=== PATIENT | female | born 1940 | race Caucasian/White ===

== ENCOUNTER → 2018-08-15 09:50 | Outpatient (CLI) | payer MEDICARE, SELFPAY ==
[2018-08-15 12:15] LABS: Rheumatoid Factor < 10.0 IU/mL (<15); Thyroid Stim Hormone (TSH) 7.91 uIU/mL (0.358-3.74)
[2018-08-16 15:20] LABS: ANTINUCLEAR ANTIBODIES DIRECT Negative (Negative)
[2018-08-17 08:09] LABS: Ceruloplasmin 25.7 mg/dL (19.0-39.0)
[2018-08-17 11:56] LABS: Copper, Serum or Plasma 102 ug/dL (72-166)
== END ==
PROVIDERS: Family Provider Nurse Practitioner; PCP Nurse Practitioner; Referring Provider Psychiatry & Neurology Neurology; Visit Provider Psychiatry & Neurology Neurology
DX: R25.1 Tremor, unspecified (principal)
CPT/HCPCS: 36415; 82390; 82525; 84443; 86038; 86431

== ENCOUNTER → 2018-08-30 20:21 | Outpatient (CLI) | payer MEDICARE, SELFPAY ==
[2018-08-30 16:05] VITALS: BMI 25.2
[2018-08-30 21:08] LABS: T3 Total - Triiodothyronine 0.89 ng/mL (0.6-1.81)
[2018-08-30 21:10] LABS: T4 Free Direct 0.25 ng/dL (0.76-1.46); Thyroid Stim Hormone (TSH) 2.92 uIU/mL (0.358-3.74)
[2018-09-04 08:41] LABS: T3 Reverse < 5.0 ng/dL (9.2-24.1); Thyroid Peroxidase AB 81 IU/mL (0-34)
== END ==
PROVIDERS: Family Provider Nurse Practitioner; PCP Nurse Practitioner; Referring Provider Nurse Practitioner; Visit Provider Nurse Practitioner
DX: E03.9 Hypothyroidism, unspecified (principal); R25.1 Tremor, unspecified; I20.8 Other forms of angina pectoris
CPT/HCPCS: 84439; 84443; 84480; 84482; 86376

== ENCOUNTER → 2019-07-01 23:35 | Outpatient (CLI) | payer MEDICARE, SELFPAY ==
[2019-07-01 15:07] VITALS: BMI 24.7
[2019-07-02 00:02] LABS: Absolute Lymphocyte Count 1.59 X10^3/uL (0.83-4.51); Basophil# 0.02 X10^3/uL; Basophil% 0.3 % (0-1); Eosinophil# 0.05 X10^3/uL; Eosinophils% 0.8 % (0-5); Hematocrit 41.9 % (37-47); Hemoglobin 13.6 g/dL (12.0-15.0); Lymphocyte # 1.59 X10^3/ul (4.0); Lymphocyte % 26.1 % (19-41); Mean Corp Hgb Conc 32.5 g/dL (32-36); Mean Corpuscular Hgb 30.4 pg (27.0-32.0); Mean Corpuscular Volume 93.5 fL (81-99); Mean Platelet Vol. 10.9 fl (6.2-12.0); Monocyte# 0.47 X10^3/uL; Monocyte% 7.7 % (0-10); NRBC Flagged by Analyzer 0 % (0-5); Neutrophil # 3.95 X10^3/uL (2.7-7.7); Neutrophil % 64.8 % (47-70); Platelet Count 233 K/mm3 (150-450); RBC Distribution Width CV 12.5 % (11.6-14.6); RBC Distribution Width SD 43.4 fl (35.1-43.9); Red Blood Count 4.48 M/mm3 (4.2-5.4); White Blood Count 6.1 K/mm3 (4.4-11.0)
[2019-07-02 00:47] LABS: AST(SGOT) 25 U/L (15-37); Alanine Aminotransfer ALT/SGPT 29 U/L (13-56); Albumin, Serum 3.9 g/dL (3.2-5.0); Alkaline Phosphatase 116 U/L (45-117); Anion Gap 8 (5-15); BUN 23 mg/dL (7-18); BUN/Creat Ratio 33.1 RATIO (10-20); Calcium,Total 9.1 mg/dL (8.5-10.1); Chloride 111 mmol/L (98-107); Cholesterol 223 mg/dL (200); EST Glomerular Filtration Rate 86 mL/min (>60); Est Glom Filt Rate - Afr Amer 105 mL/min (>60); Globulin 3.8 g/dL (2.2-4.2); Glucose 95 mg/dL (74-106); High Density Lipoprotein 121 mg/dL; Potassium 4.3 mmol/L (3.5-5.1); Protein, Total 7.7 g/dL (6.4-8.2); Sodium Level 140 mmol/L (136-145); T4 Free Direct 0.13 ng/dL (0.76-1.46); Thyroid Stim Hormone (TSH) 0.28 uIU/mL (0.358-3.74); Triglycerides 118 mg/dL; Very Low Density Lipoprotein 24 mg/dL (5-40)
[2019-07-02 02:21] LABS: T3 Total - Triiodothyronine 1.01 ng/mL (0.6-1.81)
[2019-07-08 12:45] LABS: T3 Reverse < 5.0 ng/dL (9.2-24.1)
== END ==
PROVIDERS: Family Provider Nurse Practitioner; PCP Nurse Practitioner; Referring Provider Nurse Practitioner; Visit Provider Nurse Practitioner
DX: E03.9 Hypothyroidism, unspecified (principal); G20 Parkinson's disease; D64.9 Anemia, unspecified
CPT/HCPCS: 80053; 80061; 84439; 84443; 84480; 84482; 85025

== ENCOUNTER → 2021-08-16 22:07 | Outpatient (CLI) | payer MEDICARE, SELFPAY ==
[2021-08-16 22:23] LABS: Absolute Lymphocyte Count 2.36 X10^3/uL (0.83-4.51); Absolute Neutrophil Count 4.9 X10^3/uL (2.0-7.7); Basophil# 0.02 X10^3/uL; Basophil% 0.3 % (0-1); Eosinophil# 0.07 X10^3/uL; Eosinophils% 0.9 % (0-5); Hematocrit 39.2 % (37-47); Hemoglobin 12.5 g/dL (12.0-15.0); Lymphocyte # 2.36 X10^3/ul (0.83-4.51); Lymphocyte % 29.8 % (19-41); Mean Corp Hgb Conc 31.9 g/dL (32-36); Mean Corpuscular Hgb 30.9 pg (27.0-32.0); Mean Platelet Vol. 10.4 fl (6.2-12.0); Monocyte# 0.58 X10^3/uL; Monocyte% 7.3 % (0-10); NRBC Flagged by Analyzer 0 % (0-5); Neutrophil # 4.85 X10^3/uL (2.7-7.7); Neutrophil % 61.3 % (47-70); Platelet Count 338 K/mm3 (150-450); RBC Distribution Width CV 13.1 % (11.6-14.6); RBC Distribution Width SD 46.6 fl (35.1-43.9); Red Blood Count 4.04 M/mm3 (4.2-5.4); White Blood Count 7.9 K/mm3 (4.4-11.0)
[2021-08-16 22:43] LABS: ALB/GLOB Ratio 0.7 RATIO (0.9-2.4); AST(SGOT) 32 U/L (15-37); Alanine Aminotransfer ALT/SGPT 30 U/L (13-56); Albumin, Serum 2.3 g/dL (3.2-5.0); Alkaline Phosphatase 104 U/L (45-117); Anion Gap 7 (5-15); BUN 27 mg/dL (7-18); BUN/Creat Ratio 41.5 RATIO (10-20); Calcium,Total 8.8 mg/dL (8.5-10.1); Chloride 109 mmol/L (98-107); Creatinine, Serum 0.65 mg/dL (0.55-1.02); EST Glomerular Filtration Rate 93 mL/min (>60); Est Glom Filt Rate - Afr Amer 112 mL/min (>60); Globulin 3.4 g/dL (2.2-4.2); Glucose 98 mg/dL (74-106); Potassium 4.4 mmol/L (3.5-5.1); Protein, Total 5.7 g/dL (6.4-8.2); Sodium Level 144 mmol/L (136-145); Thyroid Stim Hormone (TSH) 7.93 uIU/mL (0.358-3.74)
[2021-08-17 12:34] LABS: T3 Total - Triiodothyronine 1.48 ng/mL (0.6-1.81)
== END ==
PROVIDERS: PCP Nurse Practitioner; Referring Provider Nurse Practitioner; Visit Provider Nurse Practitioner
DX: E03.9 Hypothyroidism, unspecified (principal); G25.81 Restless legs syndrome; G47.00 Insomnia, unspecified; G25.2 Other specified forms of tremor
CPT/HCPCS: 80053; 84443; 84480; 85025

== ENCOUNTER 2021-08-26 14:05 | Emergency (ER) | payer MEDICARE, SELFPAY ==
[2021-08-26 14:06] VITALS: BP 123/95; PULSE 72; RESP 16; TEMP 36.7; O2SAT 98; BMI 21.6
--- NOTE | 2021-08-26 14:48 | EKG12_ITS ---
Test Reason : INSOMNIA Blood Pressure : / mmHG Vent. Rate : 065 BPM Atrial Rate : 260 BPM P-R Int : 000 ms QRS Dur : 086 ms QT Int : 402 ms P-R-T Axes : -27 000 026 degrees QTc Int : 418 ms Atrial flutter Abnormal ECG Confirmed by MAKI BAILEY MD ([id number]), assignment desk editor SAURABH PERALTA ([id number]) on 09/01/2021 10:57:29 AM Referred By: MR Confirmed By:MAKI BAILEY MD
--- NOTE | 2021-08-26 15:17 | RAD_ITS ---
STUDY: X-RAY CHEST REASON FOR EXAM: Female, 80 years old. chest pain TECHNIQUE: Single AP portable view of the chest. COMPARISON: None. FINDINGS: The lungs are clear and expanded. There is no demonstrated pleural abnormality. Normal size heart. Normal mediastinum and maycol. Normal visualized pulmonary arteries. There is atherosclerotic calcification of the aortic arch with tortuosity. Normal visualized thoracic spine. Normal visualized ribs, clavicles, and shoulders. There is no demonstrated abnormality of the visualized soft tissue structures of the upper abdomen. RAD/Chest 1 View (Portable) IMPRESSION: Nonacute portable x-ray examination of the chest. Electronically Signed: Byron Lawrence MD (Brooks) at 15:41 EST , Service support ,
[2021-08-26 15:27] LABS: Absolute Neutrophil Count 1.1 X10^3/uL (2.0-7.7); Basophil# 0.01 X10^3/uL; Basophil% 0.4 % (0-1); Eosinophil# 0.01 X10^3/uL; Eosinophils% 0.4 % (0-5); Hematocrit 37.3 % (37-47); Hemoglobin 12.2 g/dL (12.0-15.0); Lymphocyte % 44.1 % (19-41); Mean Corp Hgb Conc 32.7 g/dL (32-36); Mean Corpuscular Volume 94.7 fL (81-99); Mean Platelet Vol. 10.3 fl (6.2-12.0); Monocyte# 0.36 X10^3/uL; Monocyte% 13.2 % (0-10); NRBC Flagged by Analyzer 0 % (0-5); Neutrophil # 1.13 X10^3/uL (2.7-7.7); Neutrophil % 41.5 % (47-70); Platelet Count 207 K/mm3 (150-450); RBC Distribution Width CV 13.2 % (11.6-14.6); Red Blood Count 3.94 M/mm3 (4.2-5.4); White Blood Count 2.7 K/mm3 (4.4-11.0)
[2021-08-26 15:32] LABS: Mucous, Urine 0 SEEN /hpf (<or=2+); Red Blood Cells-Urine 0 SEEN /hpf (0-5); Squamous Epithelial Cells - UA 0 SEEN /hpf (5-10)
[2021-08-26 15:36] LABS: Color, Urine Yellow (Yellow); Glucose, Dipstick Normal (Normal); Ketone-Dipstick Negative (Negative); Leukocyte Esterase-Dipstick Negative /ul (Negative); Nitrite-Dipstick Negative (Negative); Occult Blood-Urine 25 /ul (Negative); Protein-Dipstick 500 mg/dl (Negative); Specific Gravity, Urine 1.015 (1.002-1.030); Urine Bilirubin Dipstick Negative (Negative); Urine Clarity Clear (Clear); Urine Urobilinogen Normal (Normal)
[2021-08-26 15:50] LABS: Bacteria RARE /hpf (None Seen); White Blood Cells 0-5 SEEN /hpf (0-5)
[2021-08-26 15:50] LABS: BNP,B-Type NATRIURETIC PEPTIDE 293.2 pg/mL (0-100)
[2021-08-26 15:51] LABS: ALB/GLOB Ratio 0.4 RATIO (0.9-2.4); AST(SGOT) 45 U/L (15-37); Alanine Aminotransfer ALT/SGPT 38 U/L (13-56); Albumin, Serum 1.7 g/dL (3.2-5.0); Alkaline Phosphatase 75 U/L (45-117); Anion Gap 3 (5-15); BUN 25 mg/dL (7-18); Calcium,Total 8.4 mg/dL (8.5-10.1); Chloride 108 mmol/L (98-107); Creatinine, Serum 0.58 mg/dL (0.55-1.02); EST Glomerular Filtration Rate 105 mL/min (>60); Est Glom Filt Rate - Afr Amer 128 mL/min (>60); Globulin 3.9 g/dL (2.2-4.2); Glucose 86 mg/dL (74-106); Potassium 4.2 mmol/L (3.5-5.1); Protein, Total 5.6 g/dL (6.4-8.2); Sodium Level 142 mmol/L (136-145); Thyroid Stim Hormone (TSH) 0.84 uIU/mL (0.358-3.74); Troponin-I HS 8 pg/mL (3.0-54.0)
[2021-08-26 15:55] LABS: Partial Thromboplast Time 30.6 Seconds (24.1-36.2)
[2021-08-26 16:00] LABS: Prothrombin Time (Protime)PT. 12.9 SECONDS (11.7-14.9)
--- NOTE | 2021-08-26 16:51 | EDS_ITS ---
HPI History of Present Illness Chief Complaint: General Illness Narrative Narrative: Patient presenting for evaluation secondary to lower extremity edema. Patient has a underlying history of atrial fibrillation as well as Parkinson's disease. Patient apparently over the course of the last 2 weeks has been dealing with lower extremity edema which is not typical for her. She was placed on diuretics, which did not seem to alleviate this. Her primary care recommended that she needed to come to the emergency department because something else might be going on. Additionally the patient's daughter states that the patient has been dealing with increased anxiety recently. She has been on Lexapro for around 2 weeks for this. Additionally patient has severe tremors from Parkinson's, and was placed on baclofen which did not seem to be alleviating this. Her tremors are becoming severe enough to the point where the patient is having difficulty sleeping. Patient states that she is also been getting intermittent headaches. She denies any recent fever cough nausea vomiting or diarrhea. Review of systems otherwise negative. [facility] Medical History Age-related nuclear cataract, unspecified eye Anemia Angina pectoris Atrial fibrillation with rapid ventricular response (06/11/20) Barretts esophagus Benign essential tremor syndrome Colorectal polyps Hormone deficiency Hypothyroid Low back strain Nonobstructive atherosclerosis of coronary artery Osteopenia Pain of right hip joint Parkinsons disease Paroxysmal atrial fibrillation Restless legs Home Medications ASbayanthin NOT APPLICABLE 03/29/18 [History Last Taken Unknown] Bifidobacterium infantis 1.5 billion cell capsule 4 mg PO QDAY 03/29/18 [History Last Taken Unknown] MSM NOT APPLICABLE 03/29/18 [History Last Taken Unknown] astragalus root NOT APPLICABLE 03/29/18 [History Last Taken Unknown] cholecalciferol (vitamin D3) 50 mcg (2,000 unit) capsule 2,000 unit PO QDAY 03/29/18 [History Last Taken Unknown] high gaumma NOT APPLICABLE 03/29/18 [History Last Taken Unknown] sea kelp NOT APPLICABLE 03/29/18 [History Last Taken Unknown] vitamin B complex 1 tab PO QDAY 03/29/18 [History Last Taken Unknown] nitro plus PO QHS 06/18/18 [History Last Taken Unknown] famotidine 20 mg tablet 20 mg PO TID tab 04/27/21 [History Last Taken Unknown] liothyronine 25 mcg tablet 37.5 mcg PO BID tab 04/27/21 [History Last Taken Unknown] magnesium oxide 400 mg PO BID 04/27/21 [History Last Taken Unknown] metoprolol succinate 25 mg tablet,extended release 24 hr 25 mg PO DAILY #90 tab 04/27/21 [Rx Last Taken Unknown] apixaban 2.5 mg tablet 2.5 mg PO BID #180 tab 06/28/21 [Rx Last Taken Unknown] metoprolol tartrate 25 mg tablet 25 mg PO BID #180 tab 06/28/21 [Rx Last Taken Unknown] compounded T3 37.5 mg PO QDAY #180 cap 08/09/21 [Rx Last Taken Unknown] baclofen 5 mg tablet 5 mg PO TID PRN #90 tab 08/16/21 [Rx Last Taken Unknown] escitalopram oxalate 5 mg tablet 5 mg PO DAILY #30 tab 08/16/21 [Rx Last Taken Unknown] furosemide 20 mg tablet 20 mg PO DAILY #10 tab 08/17/21 [Rx Last Taken Unknown] levothyroxine 25 mcg tablet 25 mcg PO DAILY #30 tab 08/17/21 [Rx Last Taken Unknown] furosemide [Lasix] 20 mg PO DAILY #10 tab 08/26/21 [Rx Last Taken Unknown] ropinirole 0.25 mg PO TID #21 tab 08/26/21 [Rx Last Taken Unknown] Allergy/AdvReac Type Severity Reaction Status Date / Time No Known Allergies Allergy Verified 06/28/21 15:46 corn and glutens AdvReac Severe Diarrhea Uncoded 04/27/21 08:24 Family History Father Heart disease Grandmother Heart disease paternal Mother Cancer lung Brother Cancer throat cancer Surgical History History of bladder suspension procedure History of right and left heart catheterization (01/12/15) History of total abdominal hysterectomy Social History Smoking Status: Unknown if ever smoked ROS ROS ED Constitutional Constitutional ED: Denies chills or fever(s) ENT ENT ED: Denies rhinorrhea Cardiovascular Cardiovascular: Denies chest pain Respiratory/Chest Respiratory/Chest: Denies cough or dyspnea Gastrointestinal Gastrointestinal: Denies abdominal pain, diarrhea, nausea or vomiting Genitourinary Genitourinary ED: Denies dysuria or hematuria Musculoskeletal Musculoskeletal: Reports other Details: Lower extremity edema Integumentary Denies rash Neurologic Neurologic: Reports headache(s) and other Details: Tremors Psychiatric Psychiatric: Reports anxiety Endocrine Endocrinology: Denies fatigue Allergic/Immunologic Allergic/Immunologic ED: Denies urticaria EXAM Physical Exam Const Vital Signs: 08/26/21 14:06 Temperature 98.1 F Temperature Source Temporal Pulse Rate 72 Respiratory Rate 16 Blood Pressure 123/95 H Blood Pressure Mean 104 Pulse Ox 98 Oxygen Delivery Method Room Air Positive well nourished and well developed Constitutional Narrative: Well-appearing elderly female not acutely distressed sitting upright in the bed. Resting tremors noted specifically with the patient's right arm. General Appearance ED: well developed and NAD HEENT Reports moist mucous membranes Negative for trauma or tenderness Eyes EOMs intact bilaterally Neck no lymphadenopathy, supple and no JVD Chest Wall inspection of chest normal Resp normal respiratory effort and clear to auscultation bilaterally Cardio regular rate, regular rhythm, no murmurs and peripheral pulses 2+ throughout GI normal to inspection, nondistended, normoactive bowel sounds, non-tender and no masses Palpation: soft Back/Spine normal to inspection Extremity normal to inspection Extremity Narrative: 1+ lower extremity edema noted General Extremety ED: Yes edema; Negative for tenderness General Extremity: edema Neuro oriented x3 and no sensory deficits noted Sensorium / Orientation: alert Motor Exam: strength 5/5 throughout Psych mental status grossly normal Skin no rashes or lesions noted MDM MDM MDM Narrative Medical decision making narrative: Patient presented secondary to peripheral edema. Urinalysis was obtained shows mild amount of protein no signs of infection. Chemistry shows normal renal function normal electrolytes. CBC showed a leukocyte suppression this resulted in the ordering a Covid test which did come back positive. Patient's troponin was noted to be negative. BNP was elevated in the 200 range. Chest x-ray by my personal review as well as radiology shows no signs of congestive heart failure or infiltrative process. Patient at this point has at least mild congestive heart failure. I believe that she is appropriate for treatment with Lasix. She is not hypoxic does not become hypoxic with ambulating she does not require admission she will follow-up with Dr. Agustin for this. Patient has already been on baclofen for treatment of her tremors, but it has been working I will start the patient on a low-dose of Requip. Patient will follow up with primary care for her tremors and anxiety. Patient was discharged in stable condition. Lab Data Labs: Laboratory Results - last 24 hr 08/26/21 08/26/21 08/26/21 14:38 15:13 15:13 WBC 2.7 L RBC 3.94 L Hgb 12.2 Hct 37.3 MCV 94.7 MCH 31.0 MCHC 32.7 RDW Std Deviation 46.0 H RDW Coeff of Windy 13.2 Plt Count 207 MPV 10.3 Immature Gran % (Auto) 0.400 Neut % (Auto) 41.5 L Lymph % (Auto) 44.1 H Nicholas % (Auto) 13.2 H Eos % (Auto) 0.4 Baso % (Auto) 0.4 Absolute Neuts (auto) 1.1 L Absolute Lymphs (auto) 1.20 Nucleated RBC % 0 PT 12.9 INR 1.0 APTT 30.6 Sodium Potassium Chloride Carbon Dioxide Anion Gap BUN Creatinine Estim Creat Clear Calc Est GFR (MDRD) Af Amer Est GFR (MDRD) Non-Af BUN/Creatinine Ratio Glucose Calcium Total Bilirubin AST ALT Alkaline Phosphatase Troponin I High Sens B-Natriuretic Peptide Total Protein Albumin Globulin Albumin/Globulin Ratio TSH Urine Color Yellow Urine Clarity Clear Urine pH 5.0 Ur Specific [place] 1.015 Urine Protein 500 H Urine Glucose (UA) Normal Urine Ketones Negative Urine Occult Blood 25 H Urine Nitrite Negative Urine Bilirubin Negative Urine Urobilinogen Normal Ur Leukocyte Esterase Negative Urine RBC 0 SEEN Urine WBC 0-5 SEEN Ur Squamous Epith Cells 0 SEEN Urine Bacteria RARE Urine Mucus 0 SEEN 08/26/21 08/26/21 15:13 15:13 WBC RBC Hgb Hct MCV MCH MCHC RDW Std Deviation RDW Coeff of Windy Plt Count MPV Immature Gran % (Auto) Neut % (Auto) Lymph % (Auto) Nicholas % (Auto) Eos % (Auto) Baso % (Auto) Absolute Neuts (auto) Absolute Lymphs (auto) Nucleated RBC % PT INR APTT Sodium 142 Potassium 4.2 Chloride 108 H Carbon Dioxide 31.0 Anion Gap 3 L BUN 25 H Creatinine 0.58 Estim Creat Clear Calc 39.70 Est GFR (MDRD) Af Amer 128 Est GFR (MDRD) Non-Af 105 BUN/Creatinine Ratio 43.0 H Glucose 86 Calcium 8.4 L Total Bilirubin 0.20 AST 45 H ALT 38 Alkaline Phosphatase 75 Troponin I High Sens 8 B-Natriuretic Peptide 293.2 H Total Protein 5.6 L Albumin 1.7 L Globulin 3.9 Albumin/Globulin Ratio 0.4 L TSH 0.84 Urine Color Urine Clarity Urine pH Ur Specific [place] Urine Protein Urine Glucose (UA) Urine Ketones Urine Occult Blood Urine Nitrite Urine Bilirubin Urine Urobilinogen Ur Leukocyte Esterase Urine RBC Urine WBC Ur Squamous Epith Cells Urine Bacteria Urine Mucus Radiography Diagnostic Testing: Clinical Impression(s) from Imaging Studies Chest X-Ray 08/26/21 15:17 IMPRESSION: Nonacute portable x-ray examination of the chest. Electronically Signed: Byron Lawrence MD (Brooks) at 15:41 EST , Service support , Discharge Plan Triage Chief Complaint: General Illness ED Provider: Stone Moscoso Dx/Rx/DC Orders Clinical Impression: Parkinson disease, CHF (congestive heart failure), COVID-19, Anxiety Instructions: Coronavirus Disease 2019 (COVID-19): Caring for Yourself or Others, ED Anxiety Reaction, ED Heart Failure, Congestive (CHF) Prescriptions: New furosemide [Lasix] 20 mg tablet 20 mg PO DAILY Qty: 10 RF: 0 ropinirole 0.25 mg tablet 0.25 mg PO TID Qty: 21 RF: 0 No Action liothyronine 25 mcg tablet 37.5 mcg PO BID RF: 0 famotidine 20 mg tablet 20 mg PO TID RF: 0 magnesium oxide 400 mg magnesium capsule 400 mg PO BID RF: 0 metoprolol succinate [Toprol XL] 25 mg tablet extended release 24 hr 25 mg PO DAILY Qty: 90 RF: 3 Eliquis 2.5 mg tablet 2.5 mg PO BID Qty: 180 RF: 3 metoprolol tartrate 25 mg tablet 25 mg PO BID Qty: 180 RF: 3 ASbayanthin Not Applicable RF: 0 astragalus root Not Applicable RF: 0 high gaumma Not Applicable RF: 0 MSM Not Applicable RF: 0 Bifidobacterium infantis [Digestive Probiotic] 1.5 billion cell capsule 4 mg PO QDAY RF: 0 sea kelp Not Applicable RF: 0 vitamin B complex [B Complex-Vitamin B12] tablet 1 tab PO QDAY RF: 0 cholecalciferol (vitamin D3) 2,000 unit capsule 2,000 unit PO QDAY RF: 0 nitro plus tablet PO QHS RF: 0 baclofen 5 mg tablet 5 mg PO TID PRN (Reason: restless leg syndrome) Qty: 90 RF: 12 escitalopram oxalate 5 mg tablet 5 mg PO DAILY Qty: 30 RF: 12 furosemide 20 mg tablet 20 mg PO DAILY Qty: 10 RF: 0 levothyroxine 25 mcg tablet 25 mcg PO DAILY Qty: 30 RF: 1 compounded T3 capsule 37.5 mg PO QDAY Qty: 180 RF: 3 Primary Care Provider: Amber Hope NP Referrals: Paras Agustin MD [STAFF PHYSICIAN] - 5-7 Days Amber Hope NP, [employer] [Primary Care Provider] - 1 Week (For your anxiety) Activity Restrictions/Additional Instructions: Discontinue taking the Baclofen Disposition Disposition: Home, Self Care
== END 2021-08-26 17:54 | disposition home or self-care (01) ==
PROVIDERS: Emergency Provider Emergency Medicine; PCP Nurse Practitioner
DX: U07.1 COVID-19 (principal); G20 Parkinson's disease; I50.9 Heart failure, unspecified; F41.9 Anxiety disorder, unspecified; I48.0 Paroxysmal atrial fibrillation; E03.9 Hypothyroidism, unspecified; I25.10 Atherosclerotic heart disease of native coronary artery without angina pectoris; Z79.899 Other long term (current) drug therapy; Z79.01 Long term (current) use of anticoagulants; Z79.890 Hormone replacement therapy
CPT/HCPCS: 71045; 80053; 81001; 83880; 84443; 84484; 85025; 85610; 85730; 87426; 93005; 99285; A4216

== ENCOUNTER 2021-08-31 11:05 | Emergency (ER) | payer MEDICARE, SELFPAY ==
[2021-08-31 11:06] VITALS: BP 161/82; PULSE 94; RESP 19; TEMP 36.6; O2SAT 97; BMI 23.3
[2021-08-31 12:06] VITALS: BP 161/82; PULSE 94; RESP 19; TEMP 36.6; O2SAT 97
--- NOTE | 2021-08-31 12:07 | EX.ED.DYSGE1 ---
HPI History of Present Illness Chief Complaint: General Illness Informant: patient and family Onset/Context/Timing Onset: Days Context: Gradual Onset Timing: Continuous Current Severity: Mild Maximum Severity: Mild Narrative Narrative: 80-year-old female history of A. fib, CAD, hypothyroidism, CHF 90. On 08/26/2021 she had a positive Covid test and is on day 8 of her symptoms. She has had increased anxiety. She has had no vomiting or diarrhea no fever. They think her cough is getting worse. Prior similar symptoms: Yes Recent Illness/Hospitalization: No PFSH PFSH Medical History Age-related nuclear cataract, unspecified eye Anemia Angina pectoris Atrial fibrillation with rapid ventricular response (06/11/20) Barretts esophagus Benign essential tremor syndrome Colorectal polyps Hormone deficiency Hypothyroid Low back strain Nonobstructive atherosclerosis of coronary artery Osteopenia Pain of right hip joint Parkinsons disease Paroxysmal atrial fibrillation Restless legs Home Medications ASbayanthin NOT APPLICABLE 03/29/18 [History Last Taken Unknown] Bifidobacterium infantis 1.5 billion cell capsule 4 mg PO QDAY 03/29/18 [History Last Taken Unknown] MSM NOT APPLICABLE 03/29/18 [History Last Taken Unknown] astragalus root NOT APPLICABLE 03/29/18 [History Last Taken Unknown] cholecalciferol (vitamin D3) 50 mcg (2,000 unit) capsule 2,000 unit PO QDAY 03/29/18 [History Last Taken Unknown] high gaumma NOT APPLICABLE 03/29/18 [History Last Taken Unknown] sea kelp NOT APPLICABLE 03/29/18 [History Last Taken Unknown] vitamin B complex 1 tab PO QDAY 03/29/18 [History Last Taken Unknown] nitro plus PO QHS 06/18/18 [History Last Taken Unknown] famotidine 20 mg tablet 20 mg PO TID tab 04/27/21 [History Last Taken Unknown] liothyronine 25 mcg tablet 37.5 mcg PO BID tab 04/27/21 [History Last Taken Unknown] magnesium oxide 400 mg PO BID 04/27/21 [History Last Taken Unknown] metoprolol succinate 25 mg tablet,extended release 24 hr 25 mg PO DAILY #90 tab 04/27/21 [Rx Last Taken Unknown] apixaban 2.5 mg tablet 2.5 mg PO BID #180 tab 06/28/21 [Rx Last Taken Unknown] metoprolol tartrate 25 mg tablet 25 mg PO BID #180 tab 06/28/21 [Rx Last Taken Unknown] compounded T3 37.5 mg PO QDAY #180 cap 08/09/21 [Rx Last Taken Unknown] baclofen 5 mg tablet 5 mg PO TID PRN #90 tab 08/16/21 [Rx Last Taken Unknown] escitalopram oxalate 5 mg tablet 5 mg PO DAILY #30 tab 08/16/21 [Rx Last Taken Unknown] furosemide 20 mg tablet 20 mg PO DAILY #10 tab 08/17/21 [Rx Last Taken Unknown] levothyroxine 25 mcg tablet 25 mcg PO DAILY #30 tab 08/17/21 [Rx Last Taken Unknown] furosemide [Lasix] 20 mg PO DAILY #10 tab 08/26/21 [Rx Last Taken Unknown] ropinirole 0.25 mg PO TID #21 tab 08/26/21 [Rx Last Taken Unknown] lorazepam [Ativan] 0.5 mg PO DAILY PRN 5 Days #5 tab 08/31/21 [Rx Last Taken Unknown] Allergy/AdvReac Type Severity Reaction Status Date / Time No Known Allergies Allergy Verified 08/31/21 11:11 corn and glutens AdvReac Severe Diarrhea Uncoded 08/31/21 11:11 Family History Father Heart disease Grandmother Heart disease paternal Mother Cancer lung Brother Cancer throat cancer Surgical History History of bladder suspension procedure History of right and left heart catheterization (01/12/15) History of total abdominal hysterectomy Social History Smoking Status: Unknown if ever smoked ROS ROS ED ROS Narrative Myalgias, cough, anxiety. Review of Systems ROS Unobtainable: Denies due to encephalopathy Constitutional Constitutional ED: Denies chills or fever(s) Eyes Eyes: Denies change in vision ENT ENT ED: Denies ear pain or rhinorrhea Cardiovascular Cardiovascular: Denies chest pain or palpitations Respiratory/Chest Respiratory/Chest: Reports cough; Denies dyspnea Gastrointestinal Gastrointestinal: Denies abdominal pain, diarrhea, nausea or vomiting Genitourinary Genitourinary ED: Denies dysuria or hematuria Musculoskeletal Musculoskeletal: Reports myalgias Integumentary Denies abscess or rash Neurologic Neurologic: Denies headache(s) Psychiatric Psychiatric: Reports anxiety; Denies depression Endocrine Endocrinology: Denies polydipsia or polyuria Allergic/Immunologic Allergic/Immunologic ED: Denies mouth swelling or urticaria EXAM Physical Exam Narrative Exam Narrative: 80-year-old female vital signs are stable afebrile. Pulse ox is 97% on room air no hypoxia. H EENT exam unremarkable. Moist remembers. Neck nontender no lymphadenopathy. Lungs clear to auscultation bilaterally. Heart regular rhythm rate about 90. Chest were nontender. Abdomen soft nontender. Nondistended normal bowel sounds no peritoneal signs. Back nontender. Moving all 4 extremities. Pill-rolling deformity tremor consistent with Parkinson's disease. Parkinson's tremors. No edema. Neurologically she is awake and alert with no focal motor deficits. Const Vital Signs: 08/31/21 11:06 08/31/21 12:05 08/31/21 12:06 Temperature 97.9 F 97.9 F Temperature Source Temporal Temporal Pulse Rate 94 94 Respiratory Rate 19 H 19 H Respiratory Effort Normal Non-Labored Blood Pressure 161/82 H 161/82 H Blood Pressure Mean 108 108 Pulse Ox 97 97 Oxygen Delivery Method Room Air Room Air Positive well nourished and well developed; Negative for obese, cachectic, contractures or unkempt General Appearance ED: well developed and NAD; Negative for unkempt, cachectic, contractures, cyanotic, diaphoretic or pallor Nutritional Appearance: Negative for cachectic or obese HEENT Reports moist mucous membranes Negative for trauma or tenderness Eyes PERRL and EOMs intact bilaterally Neck no lymphadenopathy, supple and no JVD General: Negative for tenderness Chest Wall inspection of chest normal and palpation of chest normal Resp normal respiratory effort and clear to auscultation bilaterally Effort and Inspection: Negative for pain with movement Auscultation: Negative for rales, rhonchi or wheezes Cardio regular rate, regular rhythm, S1 normal heart sound, S2 normal heart sound and no murmurs GI normal to inspection, nondistended, normoactive bowel sounds, non-tender, non-distended and no masses Auscultation: normoactive bowel sounds Palpation: soft; Negative for tender or guarding Back/Spine no CVA tenderness General Back: Negative for CVA tenderness Cervical Spine: Negative for cervical spine tenderness Thoracic Spine / Upper Back: Negative for thoracic spinal tenderness or paraspinal muscle tenderness Lumbar Spine / Lower Back: Negative for lumbar spinal tenderness Extremity normal to inspection General Extremety ED: Negative for edema or tenderness General Extremity: Negative for edema Neuro oriented x3 Neuro Narrative: Moving all 4 extremities. Parkinson's tremors. Pill-rolling tremor. Sensorium / Orientation: alert; Negative for orientation impaired, lethargic or stuporous Motor Exam: strength 5/5 throughout Psych mental status grossly normal Appearance: Negative for unkempt Attitude: No agitated Mood & Affect: anxious; Negative for depressed or tearful Skin no rashes or lesions noted and no wounds General Skin Exam: Negative for jaundice or pallor MDM MDM MDM Narrative Medical decision making narrative: Patient is on day 8 of Covid with worsening cough. Also increasing anxiety. Will be given p.o. Ativan. Chest x-ray and UA will be obtained. She had labs recently which were unremarkable. Repeat exam patient is doing well at 2:10 PM. She is much more relaxed after the Ativan. I discussed with her granddaughter at bedside. Follow-up with her primary care physician have appointment around the . I will write him for very few Ativan to be used as needed at home. Her granddaughter knows she can drink alcohol. She does not currently drive. And the risk of Ativan fo problems such as falls etc. Lab Data Attestation: I reviewed the patient's lab results. Lab results narrative: Urinalysis shows 5-10 white cells no red cells no epithelial cells 1+ bacteria and no nitrites. A urine culture be sent. Chest x-ray is negative. Labs: Laboratory Results - last 24 hr 08/31/21 12:13 Urine Color Yellow Urine Clarity Clear Urine pH 6.5 Ur Specific [place] 1.015 Urine Protein 15 H Urine Glucose (UA) Normal Urine Ketones 5 H Urine Occult Blood Negative Urine Nitrite Negative Urine Bilirubin Negative Urine Urobilinogen Normal Ur Leukocyte Esterase 500 H Urine RBC 0 SEEN Urine WBC 5-10 SEEN Ur Squamous Epith Cells 0 SEEN Urine Bacteria 1+ Urine Mucus 0 SEEN Radiography Chest X-Ray - ED: 1 View, Read by ED Physician, Heart, Lungs, Mediastinum, Bony Structures, No Acute Disease, Chronic Changes and Cardiomegaly Diagnostic Testing: Clinical Impression(s) from Imaging Studies Chest X-Ray 08/31/21 13:00 IMPRESSION: Hyperinflation. No acute infiltrate is seen. Electronically Signed: Uche Guajardo MD at 13:46 EST , Service support , Chest x-ray, portable, single view interpreted myself and radiologist shows no acute abnormality. Chronic changes. Discharge Plan Triage Chief Complaint: General Illness ED Provider: Karel Vázquez Dx/Rx/DC Orders Clinical Impression: Anxiety, Hypothyroidism (acquired), COVID-19, Paroxysmal atrial fibrillation Instructions: Anxiety Disorders Tx Therapy Prescriptions: New lorazepam [Ativan] 0.5 mg tablet 0.5 mg PO DAILY PRN (Reason: anxiety) 5 Days Qty: 5 RF: 0 No Action liothyronine 25 mcg tablet 37.5 mcg PO BID RF: 0 famotidine 20 mg tablet 20 mg PO TID RF: 0 magnesium oxide 400 mg magnesium capsule 400 mg PO BID RF: 0 metoprolol succinate [Toprol XL] 25 mg tablet extended release 24 hr 25 mg PO DAILY Qty: 90 RF: 3 Eliquis 2.5 mg tablet 2.5 mg PO BID Qty: 180 RF: 3 metoprolol tartrate 25 mg tablet 25 mg PO BID Qty: 180 RF: 3 ASbayanthin Not Applicable RF: 0 astragalus root Not Applicable RF: 0 high gaumma Not Applicable RF: 0 MSM Not Applicable RF: 0 Bifidobacterium infantis [Digestive Probiotic] 1.5 billion cell capsule 4 mg PO QDAY RF: 0 sea kelp Not Applicable RF: 0 vitamin B complex [B Complex-Vitamin B12] tablet 1 tab PO QDAY RF: 0 cholecalciferol (vitamin D3) 2,000 unit capsule 2,000 unit PO QDAY RF: 0 nitro plus tablet PO QHS RF: 0 baclofen 5 mg tablet 5 mg PO TID PRN (Reason: restless leg syndrome) Qty: 90 RF: 12 escitalopram oxalate 5 mg tablet 5 mg PO DAILY Qty: 30 RF: 12 furosemide 20 mg tablet 20 mg PO DAILY Qty: 10 RF: 0 levothyroxine 25 mcg tablet 25 mcg PO DAILY Qty: 30 RF: 1 furosemide [Lasix] 20 mg tablet 20 mg PO DAILY Qty: 10 RF: 0 ropinirole 0.25 mg tablet 0.25 mg PO TID Qty: 21 RF: 0 compounded T3 capsule 37.5 mg PO QDAY Qty: 180 RF: 3 Primary Care Provider: Amber Hope NP Referrals: Amber Hope NP, [employer] [Primary Care Provider] - Keep Bryant appointment Activity Restrictions/Additional Instructions: Plenty of fluids and rest. She should progressively continue to get better with the Covid symptoms. Follow-up with your primary care provider. Ativan only as needed if very anxious. It will make her sleepy. Be very careful that she does not fall if she is using it. She cannot drive while using it. No alcohol while using it. I would not use any more than 1/day and only use it if she needs it. Disposition Disposition: Home, Self Care
[2021-08-31 12:17] LABS: Mucous, Urine 0 SEEN /hpf (<or=2+); Red Blood Cells-Urine 0 SEEN /hpf (0-5); Squamous Epithelial Cells - UA 0 SEEN /hpf (5-10)
[2021-08-31 12:25] LABS: Color, Urine Yellow (Yellow); Glucose, Dipstick Normal (Normal); Ketone-Dipstick 5 mg/dl (Negative); Leukocyte Esterase-Dipstick 500 /ul (Negative); Nitrite-Dipstick Negative (Negative); Occult Blood-Urine Negative /ul (Negative); Protein-Dipstick 15 mg/dl (Negative); Specific Gravity, Urine 1.015 (1.002-1.030); Urine Bilirubin Dipstick Negative (Negative); Urine Clarity Clear (Clear); Urine Urobilinogen Normal (Normal); Urine pH 6.5 (5.0 - 8.0)
[2021-08-31 12:41] LABS: Bacteria 1+ /hpf (None Seen); White Blood Cells 5-10 SEEN /hpf (0-5)
[2021-08-31] MEDS: LORazepam 1 MG Tablet PO (12:45)
--- NOTE | 2021-08-31 13:00 | RAD_ITS ---
STUDY: X-RAY CHEST REASON FOR EXAM: Female, 80 years old. covid TECHNIQUE: Single AP portable view of the chest. COMPARISON: Comparison is made with prior study 08/26/2021. FINDINGS: EKG electrodes are seen. There is hyperinflation of the lungs consistent with chronic obstructive lung disease (COPD). No acute infiltrate is seen. There is no demonstrated pleural abnormality. Normal size heart. Normal mediastinum and maycol. Normal visualized pulmonary arteries. There is atherosclerotic calcification of the aortic arch with tortuosity. Normal visualized thoracic spine. Normal visualized ribs, clavicles, and shoulders. There is no demonstrated abnormality of the visualized soft tissue structures of the upper abdomen. RAD/Chest 1 View (Portable) IMPRESSION: Hyperinflation. No acute infiltrate is seen. Electronically Signed: Uche Guajardo MD at 13:46 EST , Service support ,
[2021-08-31 14:17] VITALS: BP 103/59; PULSE 63; RESP 16; O2SAT 99
[2021-08-31 15:22] VITALS: BP 103/59; PULSE 65; RESP 16; O2SAT 97
== END 2021-08-31 15:24 | disposition home or self-care (01) ==
PROVIDERS: Emergency Provider Emergency Medicine; PCP Nurse Practitioner; Visit Provider Emergency Medicine
DX: U07.1 COVID-19 (principal); G20 Parkinson's disease; I50.9 Heart failure, unspecified; I48.0 Paroxysmal atrial fibrillation; E03.9 Hypothyroidism, unspecified; I25.10 Atherosclerotic heart disease of native coronary artery without angina pectoris; F41.9 Anxiety disorder, unspecified
CPT/HCPCS: 71045; 81001; 99284; J7030

== ENCOUNTER 2021-10-15 22:38 | Outpatient (CLI) | payer MEDICARE, SELFPAY ==
[2021-10-15 23:08] LABS: T4 Free Direct 0.38 ng/dL (0.76-1.46); Thyroid Stim Hormone (TSH) 0.02 uIU/mL (0.358-3.74)
== END 2021-10-15 23:59 | disposition home or self-care (01) ==
PROVIDERS: PCP Nurse Practitioner; Visit Provider Nurse Practitioner
DX: E03.9 Hypothyroidism, unspecified (principal)
CPT/HCPCS: 84439; 84443